=== PATIENT | female | born 1960 | race Caucasian/White ===

== ENCOUNTER 2022-10-02 08:08 | Emergency (ER) | payer OTHER, SELFPAY ==
[2022-10-02 08:14] VITALS: BP 139/66; PULSE 75; RESP 14; TEMP 36.4; O2SAT 97; BMI 31.1
--- NOTE | 2022-10-02 08:29 | XRR_ITS ---
PROCEDURE INFORMATION: Exam: XR Cervical Spine Exam date and time: 10/02/2022 8:51 AM Age: 62 years old Clinical indication: Injury or trauma; Fall; Blunt trauma; Additional info: Fell out of bed, neck pain TECHNIQUE: Imaging protocol: Radiologic exam of the cervical spine. Views: 2 or 3 views. COMPARISON: No relevant prior studies available. FINDINGS: Bones/joints: 1 mm listhesis C6 anterior to C5. [id number] degenerative disc disease C5/6/7. 1 mm listhesis C6 anterior to C7. No fracture. Soft tissues: Unremarkable. Other findings: The dens is not well seen on the open-mouth view due to patient's teeth. XR/XR cervical spine 3V* [id number] IMPRESSION: No fracture. Listhesis. Poor open-mouth view therefore I cannot evaluate the dens accurately.
--- NOTE | 2022-10-02 08:29 | XRR_ITS ---
PROCEDURE INFORMATION: Exam: XR Thoracic Spine Exam date and time: 10/02/2022 8:51 AM Age: 62 years old Clinical indication: Injury or trauma; Fall; Blunt trauma (contusions or hematomas); Additional info: Fell out of bed, upper back pain TECHNIQUE: Imaging protocol: Radiologic exam of the thoracic spine. Views: 3 views. COMPARISON: No relevant prior studies available. FINDINGS: Bones/joints: Mild arthritic changes seen chiefly degenerative disc disease and mild anterior spurring. There is no fracture. There is listhesis at T1/2 5 mm. Soft tissues: Unremarkable. XR/XR thoracic spine 2V [id number] IMPRESSION: T1/2 listhesis.
--- NOTE | 2022-10-02 09:05 | ED_ITS ---
HPI - Fall General: Chief Complaint: Fall Stated Complaint: Fell, hit back of head Time Seen by Provider: 10/02/22 08:20 History of Present Illness: Patient presents to the ER complaining of head and upper back pain. Patient states she rolled out of bed striking the right side of her head on a nightstand and injuring her neck. Patient rates the pain currently 4 out of 10 and worse with movement. Patient denies any loss of consciousness and is not currently on blood thinners MD complaint: fall Onset (ago): day(s) (Last night) Fall from: out of bed Fall witnessed: yes, by family Place fall occurred: home Loss of consciousness: None Location of injury: neck Review of Systems General: Reports: 10 or more systems reviewed and unremarkable except in HPI and below Physical Exam Const: COMMON NORMALS: no acute distress, average body habitus, patient oriented x3, no limitations, healthy appearing, alert and well nourished HENMT: COMMON NORMALS: normocephalic, atraumatic, hearing grossly normal bilaterally, external ears normal, Normal external nose present and moist oral mucous membranes HEAD & SCALP: normocephalic and atraumatic NOSE: Normal external nose present EXTERNAL EAR: Yes external ears normal Eye: COMMON NORMALS: Equal, round and reactive pupils present, EOMs intact bilaterally, conjunctivae normal and no scleral icterus CONJUNCTIVA: Yes conjunctivae normal PUPIL: Yes Equal, round and reactive pupils present Neck/C-Spine: COMMON NORMALS: full ROM, no lymphadenopathy, supple, no meningeal signs, no JVD and Thyroid normal THYROID: Thyroid normal OTHER: Minimal cervical and upper thoracic paraspinal muscle tenderness to palpation no spinal process tenderness Chest: COMMONS NORMALS: normal inspection of the chest and normal palpation of entire chest wall Resp: COMMON NORMALS: normal respiratory effort, No retractions, No use of accessory muscles and clear to auscultation bilaterally AUSCULTATION: clear to auscultation bilaterally Cardio: COMMON NORMALS: no JVD, regular rate, regular rhythm, S1 normal heart sound present, S2 normal heart sound present, No gallops present (Cardio), No clicks present (Cardio), No murmurs present (Cardio) and No rub (Cardio) RATE: regular rate RHYTHM: regular rhythm HEART SOUNDS: S1 normal heart s ound present and S2 normal heart sound present GI: COMMON NORMALS: Normal to inspection, nondistended, normoactive bowel sounds present, Soft to palpation, non-tender, No hepatosplenomegaly present and no masses PALPATION: Yes Soft to palpation and Yes No hepatosplenomegaly present : COMMON NORMALS: Yes no CVA tenderness BLADDER/KIDNEY EXAM: Yes no CVA tenderness Back/Pelvis: COMMON NORMALS: no CVA tenderness Neuro: COMMON NORMALS: patient oriented x3 SENSORIUM/ORIENTATION: Yes alert MENINGEAL SIGNS: Yes no meningeal signs Course Vital Signs: Vital signs: Vital Signs Temperature 97.5 F L 10/02/22 08:14 Pulse Rate 75 10/02/22 08:14 Respiratory Rate 14 10/02/22 08:14 Blood Pressure 139/66 10/02/22 08:14 Pulse Oximetry 97 10/02/22 08:14 Oxygen Delivery Me thod Room Air 10/02/22 08:14 MDM - Fall Medical Decision Making Patient fell out of bed last night hit her head with no loss of consciousness is not on blood thinners and is complaining of mild neck and upper back pain. X- rays were obtained which were negative for acute fracture. Patient be discharged to follow-up with her PCP in 1 week as needed. Differential Diagnosis Unlikely syncope, dislocation of shoulder region, fracture of wrist, compression fracture, concussion with loss of consciousness or concussion without loss of consciousness Medical Records I reviewed the patient's medical records. Lab Data I reviewed the patient's lab results. Radiology Impressions Cervical Spine X-Ray 10/02/22 08:29 IMPRESSION: No fracture. Listhesis. Poor open-mouth view therefore I cannot evaluate the dens accurately. Thoracic Spine X-Ray 10/02/22 08:29 IMPRESSION: T1/2 listhesis. Discharge Plan Discharge Patient Disposition: Home Clinical Impression: Acute neck pain Fall Qualifiers: Encounter type: initial encounter Qualified Code(s): W19.XXXA - Unspecified fall, initial encounter Condition: Stable Discharge Orders: Discharge ED (Routine); Ordered 10/02/22 Ordered By: Jose Hodgson Patient Instructions: Neck Pain (ED) Activity Restrictions/Additional Instructions: Please take Tylenol and/or ibuprofen as needed for pain. Please follow-up with your family practice doctor within 1 week as needed if symptoms do not resolve. Coding Level of Care Code ED Quality Cloth Tester for [facility]
[2022-10-02 10:01] VITALS: BP 132/81; PULSE 74; RESP 16; O2SAT 98
--- NOTE | 2022-10-07 12:40 | DCPLANNER ---
intake manager called patient due to no primary care physician - no answer at this time.
== END 2022-10-02 10:03 | disposition home or self-care (01) ==
PROVIDERS: Emergency Provider Emergency Medicine
DX: M54.2 Cervicalgia (principal); W06.XXXA Fall from bed, initial encounter
CPT/HCPCS: 72040; 72070; 99283